=== PATIENT | female | born 1985 | race African-American/Black ===

== ENCOUNTER 2021-01-30 16:30 | Outpatient (CLI) | payer OTHER ==
--- NOTE | 2021-01-30 17:50 | XRAY Report ---
PROCEDURE: Foot 3 View RT INDICATIONS: R FOOT PX TECHNIQUE: 3 weightbearing views of the foot were acquired. COMPARISON: None FINDINGS: Bones: No fractures or dislocations. No suspicious bony lesions. Soft tissues: No tibiotalar joint effusion. Achilles tendon appears normal. IMPRESSION: Unremarkable right foot radiographs Reviewed by: Azam Rossi MD on 01/30/2021 4:49 PM [facility] Approved by: Azam Rossi MD on 01/30/2021 4:49 PM [facility] Station ID: [id number]
== END 2021-01-30 16:31 | disposition home or self-care (01) ==
LOC: DI.N 16:30
PROVIDERS: ATTEND Physician Assistant
DX: M79.671 Pain in right foot (principal)

== ENCOUNTER 2021-05-24 20:21 | Outpatient (CLI) | payer OTHER ==
--- NOTE | 2021-05-27 08:39 | Ultrasound Report ---
PROCEDURE: Pelvic w/Transvaginal INDICATIONS: LOWER ABDOMINAL PAIN TECHNIQUE: Real-time scanning was performed of the pelvic organs, with image documentation. Additional endovagi nal scanning was necessary due to incomplete visualization of the adnexal and endometrial structures by transabdominal scanning. COMPARISON: None. FINDINGS: UTERUS: Heterogeneous echotexture, anteverted, and measures 9.8 x 3.8 x 4.2 cm. Thickening of the endometrium, measuring 9.7 mm. Complex material is seen within the endometrial and cervical canal, most consistent with blood produc ts. RIGHT OVARY: 3.5 x 2.6 x 1.8 cm. Color-flow projects over the ovarian tissue. Hypoechoic lesion withi n the right ovary, measuring up to 1.2 cm, most consistent with a cyst. LEFT OVARY: 3 x 2 x 2.2 cm. Color-flow projects over the ovarian tissue. OTHER: Suggestion of a mildly dilated right fallopian tube. IMPRESSION: 1.Complex material within the endometrial/cervical canal, most consistent with blood products. 2.Suggestion of a mildly dilated right fallopian tube. Differential considerations include a hydro ve rsus pyosalpinx. Consider short-term sonographic follow-up as clinically warranted. Reviewed by: Stevenson Rivers MD on 05/27/2021 8:38 AM [facility] [place] Approved by: Stevenson Rivers MD on 05/27/2021 8:38 AM PST Station ID: [id number]
== END 2021-05-24 20:22 | disposition home or self-care (01) ==
LOC: DI 20:21
PROVIDERS: ATTEND Student in an Organized Health Care Education/Training Program
DX: R10.30 Lower abdominal pain, unspecified (principal); R93.89 Abnormal findings on diagnostic imaging of other specified body structures

== ENCOUNTER 2021-09-12 15:43 | Outpatient (CLI) | payer OTHER ==
--- NOTE | 2021-09-12 18:30 | XRAY Report ---
PROCEDURE: Knee 3 View BILAT INDICATIONS: BILATERAL KNEE PAIN TECHNIQUE: 3 views of each knee were acquired. COMPARISON: None. FINDINGS: Bones: No acute fractures or dislocations. No suspicious bony lesions. Soft tissues: No joint effusion. No suspicious soft tissue calcifications. IMPRESSION: No acute osseous abnormality. If symptoms persist or there is continued clinical concern , further evaluation with MRI or CT may be helpful. Reviewed by: Payam Redmond MD on 09/12/2021 5:29 PM [facility] Approved by: Payam Redmond MD on 09/12/2021 5:29 PM [facility] Station ID: [id number]
== END 2021-09-12 15:44 | disposition home or self-care (01) ==
LOC: DI.N 15:43
PROVIDERS: ATTEND Student in an Organized Health Care Education/Training Program
DX: M25.561 Pain in right knee (principal); M25.562 Pain in left knee